=== PATIENT | male | born 1975 | race Hispanic/Latino ===

== ENCOUNTER 2018-07-20 14:19 | Emergency (ER) | payer SELFPAY ==
[2018-07-20] MEDS ORDERED: Lidocaine 5% Patch TD STA (14:39)
[2018-07-20 14:51] VITALS: RESP 16
--- NOTE | 2018-07-20 15:32 | RAD ---
Date of service: 07/20/2018 PROCEDURE: Radiographs of the Lumbar Spine. HISTORY: injury COMPARISON: No prior. TECHNIQUE: 5 views obtained. FINDINGS: BONES: Normal alignment. No listhesis. No fracture. DISC SPACES: Mild degenerative changes are noted. OTHER FINDINGS: None. IMPRESSION: No evidence of acute fracture or traumatic subluxation.
--- NOTE | 2018-07-20 15:55 | C.PDOC ---
<Luciano Griffith Jr. - Last Filed: 07/20/18 15:52> <Meena Condon - Last Filed: 07/20/18 18:24> Chief Complaint (Nursing): Back Pain Past Medical History Vital Signs: Last Vital Signs Temp 98 F 07/20/18 14:28 Pulse 73 07/20/18 14:28 Resp 16 07/20/18 14:28 BP 126/88 07/20/18 14:28 Pulse Ox 100 07/20/18 14:28 - Social History Hx Alcohol Use: No Hx Substance Use: No - Immunization History Hx Tetanus Toxoid Vaccination: No Hx Influenza Vaccination: No Hx Pneumococcal Vaccination: No <Luciano Griffith Jr. - Last Filed: 07/20/18 15:52> Vital Signs: Last Vital Signs Temp 98.7 F 07/20/18 16:46 Pulse 75 07/20/18 16:46 Resp 16 07/20/18 16:46 BP 118/78 07/20/18 16:46 Pulse Ox 95 07/20/18 18:24 <Meena Condon - Last Filed: 07/20/18 18:24> ED Course And Treatment O2 Sat by Pulse Oximetry: 100 <Luciano Griffith Jr. - Last Filed: 07/20/18 15:52> Disposition <Luciano Griffith Jr. - Last Filed: 07/20/18 15:52> <Meena Condon - Last Filed: 07/20/18 18:24> - Disposition Forms: [employer] (Romanian)
[2018-07-20 16:47] VITALS: BP 118/78; PULSE 75; TEMP 98.7; O2SAT 95
--- NOTE | 2018-07-20 18:24 | C.PDOC ---
History Of Present Illness Patient is a 42 year old male who presents to the ED for evaluation of lower back pain that began today after patient was at the gym. As per patient, he was squatting 245lbs when he felt weakness in his legs and fell back onto buttocks with bar on his shoulders. Patient reports that he felt pain shooting into his right leg, felt numbness of two toes of his right foot, and urinated on himself. Patient was ambulatory with limp upon arrival. Patient denies any chronic medical problems. he denies being on any medications. Patient denies having prior back pain or any kind of chronic pain. 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 He sts he is going back home in 8 days. Chief Complaint (Nursing): Back Pain History Per: Patient History/Exam Limitations: no limitations Onset/Duration Of Symptoms: Hrs Current Symptoms Are (Timing): Still Present Quality Of Discomfort: "Pain" Recent travel outside of the [place]: No Additional History Per: Patient Past Medical History Reviewed: Historical Data, Nursing Documentation, Vital Signs Vital Signs: Last Vital Signs Temp 98.7 F 07/20/18 16:46 Pulse 75 07/20/18 16:46 Resp 16 07/20/18 16:46 BP 118/78 07/20/18 16:46 Pulse Ox 95 07/20/18 16:46 - Medical History PMH: No Chronic Diseases Surgical History: Hernia Repair Family History: States: No Known Family Hx - Social History Hx Alcohol Use: No Hx Substance Use: No - Immunization History Hx Tetanus Toxoid Vaccination: No Hx Influenza Vaccination: No Hx Pneumococcal Vaccination: No Review Of Systems Except As Marked, All Systems Reviewed And Found Negative. Genitourinary: Positive for: Incontinence Musculoskeletal: Positive for: Back Pain Neurological: Positive for: Numbness Physical Exam - Physical Exam Appears: Non-toxic, No Acute Distress Skin: Normal Color, Warm, Dry Head: Atraumatic, Normacephalic Eye(s): bilateral: Normal Inspection Gastrointestinal/Abdominal: Other (No urine loss) Back: Other (tenderness to L-spine.) Neurological/Psych: Oriented x3, Normal Speech, Normal Cognition, Normal Sensation (As per patient, decreased sensation to right leg), Normal Reflexes (right leg) ED Course And Treatment O2 Sat by Pulse Oximetry: 95 (on RA) Pulse Ox Interpretation: Normal - Other Rad Xray LS SPine X-Ray: Viewed By Me, Read By Radiologist Interpretation: Date of service: 07/20/2018. PROCEDURE: Radiographs of the Lumbar Spine. HISTORY: injury. COMPARISON: No prior. TECHNIQUE: 5 views obtained. FINDINGS: BONES: Normal alignment. No listhesis. No fracture. DISC SPACES: Mild degenerative changes are noted. OTHER FINDINGS: None. IMPRESSION: No evidence of acute fracture or traumatic subluxation. MR- Lumbar Spine X-Ray: Viewed By Me, Read By Radiologist Interpretation: Read by [facility]. MR-Lumbar Spine. Impression: Small posterior central disc herniation L5-S1 level. No acute osseous abnormality identified. MR- Thoracic Spine X-Ray: Viewed By Me, Read By Radiologist Interpretation: Read by [facility]. MR- Thoracic Spine. Impression: No acute osseous abnormality demonstrated. No john disc herniation. Technically limited study. Progress Note: Plan: Lidoderm 1ea TD. Toradol 60mg IM. Valium 5mg PO. Xray LS Spine. Xray read as negative. Patient states he has difficulty urinating, given urinal but patient states he is unable to. Bladder scan showed 77ml of urine. Spoke to neurology second officer who recommended to do MRI. MRI unavaible at [facility] at this time. Contacted [facility] who have MRI available. Patient transferred to [place] to do MRI. Patient was looked up with [place] [employer] and had multiple prescriptions for opiotes and benzos from different places in [place] and [place] from 9 previous visits in and June this year. On arrival from [place] patient feels better, able to0 urinate, ambulatory in ED. Patient expressed concern that he may fell again due to the pain in his back. Walker was ciarra in and offered to the patient to secure his ambulation while he has pain. Patient refused walker and was discharged home. Patient sts his friend will pick him up from ED. Patient ambulated to the waiting room accompanied by wound care technician. He ambulated without difficulties and without limping. Disposition - Disposition Referrals: Darryl Hardin III, MD [Staff Provider] - Disposition: HOME/ ROUTINE Disposition Time: 20:16 Condition: STABLE Additional Instructions: Follow up with PMD/Orthopedist within 1-2 days. Return to ED if feel worse. Prescriptions: Lidocaine 5% [Lidoderm] 1 patch TP DAILY #30 patch Ibuprofen [Motrin Tab] 600 mg PO Q8 #30 tab Methocarbamol [Robaxin-750] 750 mg PO TID #30 tab Instructions: Low Back Pain in Adults Forms: [facility] (Bengali) - Clinical Impression Clinical Impression: Low back strain - PA / OFFICE MOVER / Resident Statement MD/DO has examined the patient and agrees with the treatment plan. - Scribe Statement The provider has reviewed the documentation as recorded by the Louis Galloway All medical record entries made by the Zeibkacey were at my direction and personally dictated by me. I have reviewed the chart and agree that the record accurately reflects my personal performance of the history, physical exam, medical decision making, and the department course for this patient. I have also personally directed, reviewed, and agree with the discharge instructions and disposition.
== END 2018-07-20 20:22 | disposition home or self-care (01) ==
LOC: C.ER 14:19
DX: S39.012A Strain of muscle, fascia and tendon of lower back, initial encounter (principal); W18.30XA Fall on same level, unspecified, initial encounter; Y93.89 Activity, other specified; Y92.39 Other specified sports and athletic area as the place of occurrence of the external cause
CPT/HCPCS: 72100; 96372; 99283; J1885